=== PATIENT | male | born 1970 | race Caucasian/White ===

== ENCOUNTER 2018-06-02 18:49 | Emergency (ER) | payer SELFPAY, OTHER ==
[2018-06-02] MEDS: HYDROCODONE/APAP (5/325) TAB PO (19:30)
[2018-06-02] MEDS: DIPHTH/TET/ACEL PERTUSS (ADULT) 0.5 ML VIAL IM* (19:31)
[2018-06-02] MEDS: LIDOCAINE 1% (MDV) 10 ML INJ INJ (19:38)
[2018-06-02] MEDS: LIDOCAINE 1% (MDV) 20 ML INJ INJ (19:38)
[2018-06-02] MEDS: CEFAZOLIN 1 GM INJ IM (20:41)
== END 2018-06-02 21:00 | disposition home or self-care (01) ==
LOC: FTE 18:49
DX: S61.211A Laceration without foreign body of left index finger without damage to nail, initial encounter (principal); S62.601A Fracture of unspecified phalanx of left index finger, initial encounter for closed fracture; E11.9 Type 2 diabetes mellitus without complications; W31.1XXA Contact with metalworking machines, initial encounter; Y92.9 Unspecified place or not applicable; Z23 Encounter for immunization
CPT/HCPCS: 12002; 73140; 90471; 90715; 96372; 99284-25